=== PATIENT | male | born 1960 | race Caucasian/White ===

== ENCOUNTER 2022-09-09 08:07 | Emergency (ER) | payer OTHER, SELFPAY ==
[2022-09-09 08:13] VITALS: BP 190/118; PULSE 103; RESP 18; TEMP 36.9; O2SAT 98; BMI 29.9
--- NOTE | 2022-09-09 08:21 | ED.SKABFB1 ---
HPI - Skin/Abscess/Foreign Bdy General Chief complaint: Skin/Abscess/Foreign Body Stated complaint: UPPER EXTREMITY PAIN LEFT ARMPIT Time Seen by Provider: 09/09/22 08:12 Source: patient Mode of arrival: walk-in Limitations: no limitations History of Present Illness HPI narrative: abscess left armpit - been there for months - increased in size and pain over the last few days. began spontaneously draining foul smelling pus this morning so he came to the ED for evaluation. he was supposed to see a physician a couple of weeks ago but the appointment got canceled. No systemic symptoms such as fever or vomiting. Related Data Previous Rx's Medication Instructions Recorded cephalexin 500 mg capsule 500 mg PO QID 7 days #28 caps 09/09/22 sulfamethoxazole 800 1 tab PO BID 7 days #14 tabs 09/09/22 mg-trimethoprim 160 mg tablet (Bactrim DS) Allergies Allergy/AdvReac Type Severity Reaction Status Date / Time No Known Drug Allergies Allergy Verified 09/09/22 08:11 Exam Narrative Exam Narrative: Nurses notes and vital signs reviewed and patient is not hypoxic. afebrile General: Well-appearing and in no apparent distress. Skin: Warm, dry, no pallor noted. LEFT AXILLA - 2cm x 4cm cutaneous abscess with erythema and tenderness. two areas are spontaneously draining foul smelling purulent material. Head: Normocephalic, atraumatic. Eye: Pupils are equal, round and EOMI. No scleral icterus. Ears, Nose, Mouth, and Throat: Oral mucosa is moist Cardiovascular: Regular Rate and Rhythm without murmur, gallop or rub. Respiratory: No accessory muscle use or respiratory distress. Lungs are clear to auscultation, no wheezing, rales or rhonchi Musculoskeletal: left UE with normal ROM Neurological: A&O x4. No cranial nerve dysfunction observed. No truncal ataxia. Moves all extremities. Sensation intact. Psychiatric: Cooperative and interactive. Normal mood and affect. Constitutional Vital Signs - 24 hr 09/09/22 08:13 Temperature 98.4 F Pulse Rate [Monitor] 103 H Respiratory Rate 18 Blood Pressure [Left Arm] 190/118 H Pulse Oximetry 98 Course Vital Signs Vital signs: Vital Signs Temperature 98.4 F 09/09/22 08:13 Pulse Rate 103 H 09/09/22 08:13 Respiratory Rate 18 09/09/22 08:13 Blood Pressure 190/118 H 09/09/22 08:13 Pulse Oximetry 98 09/09/22 08:13 Temperature 98.4 F 09/09/22 08:13 Pulse Rate 103 H 09/09/22 08:13 Respiratory Rate 18 09/09/22 08:13 Blood Pressure 190/118 H 09/09/22 08:13 Pulse Oximetry 98 09/09/22 08:13 MDM - Skin/Abscess/Foreign Bdy MDM Narrative Medical decision making narrative: patient with cutaneous abscess left axilla. It is already draining from two areas spontaneously. With pressure I was able to evacuate a very large amount of purulent material. Culture obtained. Patient prescribed bactrim ds and keflex and instructed to see his PCP for follow up. Discharge Plan Discharge Chief Complaint: Skin/Abscess/Foreign Body Clinical Impression: Cutaneous abscess of axilla Patient Disposition: Home, Self-Care Time of Disposition Decision: 08:27 Prescriptions / Home Meds: New cephalexin 500 mg capsule 500 mg PO QID 7 Days Qty: 28 0RF sulfamethoxazole-trimethoprim [Bactrim DS] 800-160 mg tablet 1 tab PO BID 7 Days Qty: 14 0RF Instructions: Abscess (ED) Stand Alone Forms: Portal Instructions
== END 2022-09-09 08:47 | disposition home or self-care (01) ==
LOC: ER 08:30
PROVIDERS: Emergency Provider Emergency Medicine
DX: L02.412 Cutaneous abscess of left axilla (principal)
CPT/HCPCS: 87070; 99283